=== PATIENT | female | born 1950 | race Caucasian/White ===

== ENCOUNTER 2016-05-01 06:51 | Day surgery (SDC) | payer MEDICARE, OTHER ==
[~2016-05-01] VITALS: Ht 172.7 cm; Wt 98.6 kg
[2016-05-01] VITALS (10 sets, daily range): BP systolic 132–173; BP diastolic 58–75; PULSE 55–65; RESP 10–18; O2SAT 94–100
[~2016-05-01 06:51] MED LIST: AMLO10TA3 PO; ATRV10T PO; CALC0.257 PO; CITA40TA PO; CeFAZolin 2 Gm/50 mL D5W IV Premix IV ONE; FURO40TA4 PO; GLIP5TAB26 PO; IMDUR; Lactated Ringer's 1,000 ML IV ONE; OMEP20CA11 PO; ZYL100 PO
[2016-05-01] MEDS ORDERED: Ondansetron 2 mg/mL 2 mL Inj ONE (06:52)
[2016-05-01] MEDS ORDERED: MetoCLOpramide 5 mg/mL 2 mL Inj ONE (06:52)
[2016-05-01] MEDS ORDERED: fentaNYL-PF 50 mCg/mL 2 mL Inj ONE (06:52)
[2016-05-01] MEDS ORDERED: Propofol 10,000 mCg/mL 20 mL Inj ONE (06:52)
[2016-05-01] MEDS ORDERED: Famotidine 20 mg/50 mL NS Premix IV ONE (09:42)
[2016-05-01] MEDS ORDERED: Bupivacaine-MPF 0.5% W/EPI 30 mL Inj INFILTRATE ONE (09:51)
[2016-05-01] MEDS ORDERED: Lactated Ringer's 500 ML IV PRN ×2 (10:12→10:58)
[2016-05-01] MEDS ORDERED: Lactated Ringer's 1,000 ML IV SCH ×2 (10:12→10:58)
--- NOTE | 2016-05-01 10:12 | PCM.HPANE ---
Patient Data Surgeon Admitting Provider: Attending Provider:Carlos Shahid MD Primary Care Physician:Mitchell Other Provider:Yong Rodriguez Anesthesia Reason for Visit Left Axilla Cyst Ht/WT & BMI Height (Feet): 5 Height (Inches): 8 Weight (Kilograms): 98.6 Body Mass Index 32.00 Allergies Uncoded Allergies: SODIUM PENTATHOL (Allergy, Unknown, 11/25/13) Past Anesthesia History Anesthesia History: Denies:: Abnormal Airway, Anesthesia Reactions, Difficult Intubation, Fam Anesthesia Reaction, Fam Malignant Hypertherm, Malignant Hyperthermia Diabetes History Hx Diabetes?: Yes Type of Diabetes: Type II Glycemic Control: Oral Medication Current Bedside Blood Glucose: 109 MRSA MRSA: No Medications Hypertension Medication: Yes Home Meds Incl Beta Gunner: Yes Reported Medications [imdur ER] No Conflict Check30 Mg DAILY 04/28/16 Glipizide ER 5 Mg Tab.er.245 Mg PO QPM 04/28/16 Glipizide ER 5 Mg Tab.er.2410 Mg PO QAM 04/28/16 Furosemide 40 Mg Wurcgr65 Mg PO DAILY 04/28/16 Citalopram Hydrobromide (Celexa)40 Mg Pjaksa63 Mg PO DAILY Ref 0 04/28/16 Calcitriol (Rocaltrol)0.25 Mcg Capsule0.5 Mcg PO Mon, Wed, Sun04/28/16 Atorvastatin (Lipitor)10 Mg Tab10 Mg PO DAILY Ref 0 04/28/16 Amlodipine 10 Mg Jymnfa23 Mg PO DAILY Ref 0 04/28/16 Allopurinol 100 Mg Vqcsvg204 Mg PO DAILY Ref 0 04/28/16 Discontinued Reported Medications Omeprazole 20 Mg Capsule.dr20 Mg PO DAILY Ref 0 04/28/16 [Calcitriol] No Conflict Check Po 3X/Weekly 07/16/14 [Emergen C] No Conflict Check Po Prn POWEDER FORM 01/15/14 Ferrous Sulfate 325 Mg Mrctsp453 Mg PO BID Ref 0 01/15/14 Lisinopril 20 Mg Wsnakv06 Mg PO DAILY Ref 0 01/15/14 Omeprazole-Expunged Drug, Do Not Renew! 20 Mg Capsule.dr20 Mg PO DAILY Ref 0 05/08/13 glipiZIDE-Expunged Drug, Do Not Renew! 5 Mg Tablet5 Mg PO PM For Diabetes 05/08/13 glipiZIDE-Expunged Drug, Do Not Renew! 5 Mg Kmmcko81 Mg PO AM For Diabetes 05/08/13 Allopurinol-Expunged Drug, Do Not Renew! 100 Mg Teryhh369 Mg PO DAILY 05/08/13 Atorvastatin-Expunged Drug, Do Not Renew! 20 Mg Gtydwn39 Mg PO DAILY Ref 0 05/08/13 Carvedilol-Expunged Drug, Do Not Renew! 6.25 Mg Gktalt93.5 Mg PO DAILY Ref 0 For OUTPATIENT can convert to long acting Coreg CR 20 mg Daily 05/08/13 AmLODIPine-Expunged Drug, Do Not Renew! 5 Mg Tablet5 Mg PO DAILY 05/08/13 Citalopram-Expunged Drug, Do Not Renew! 20 Mg Poopix74 Mg PO AM Ref 0 05/08/13 [occuvite/lutein] No Conflict Check 05/08/13 Ubidecarenone (Coq10)50 Mg Tab.iojr973 Mg PO DAILY 05/08/13 History HEENT History: Denies:: Abnormal Airway Difficult Intubation Dysphagia Hearing Problem Denture Type: Full- Upper Full- Lower Hx of Heart Problems?: No Cardiovascular History: Positive for:: Hypertension Denies:: AICD Atrial Fibrillation Chest Pain Pacemaker Valvular Heart Disease Hx of Respiratory Problem?: No Respiratory History: Denies:: Asthma COPD Cough Hemoptysis Oxygen Administration Pneumonia Tuberculosis Use of C-PAP Machine Hx Neurologic Problems?: No Neurological History: Denies:: CVA Dementia Multiple Sclerosis Parkinson's Disease Hx of GI Problems?: Yes Gastrointestinal History: Positive for:: Gastroesphageal Reflux Denies:: Cirrhosis Diverticulitis Gall Bladder Disease Hiatal Hernia Rectal Bleeding Hx of Problems?: Yes Genitourinary History: Denies:: Kidney Stones Other Pertinent History: CKD stage 4, from hypertensive nephrosclerosis Female Hx: Denies:: Currently Problems with Breasts? Skin History: Positive for:: History Skin Disorders? (left axillary cyst current admission problem) Hx Musculoskeletal Problems?: Yes Musculoskeletal History: Denies:: Joint Replacement Hx of Psycho/Social Problems?: Yes Psycho Social History: Positive for:: Hx Depression Denies:: Anxiety Hx Surgeries?: Yes (exc cyst buttock, thyroid biopsy, ) Hx Any Other Health Problems?: Yes Other History: Positive for:: Thyroid Disease (hyper, goiter) Hx Diabetes: YesBedside Blood Glucose: 109 Hx Alcohol Use: Yes (once in a while)Hx Substance Use: No Smoking Status: Former Smoker Have You Smoked inLast 12 mo: No Stop/Bang S-Snoring: Do You Snore Loudly: No T-Tired: feel tired, fatigued: No O-Obsered: Observed not breath: No P-Blood Pressure: treated: Yes B- Body Mass Index > 35 kg/m2: No A- Age over 50: Yes N- Neck Large Circumference: No G- Gender Male: No NAV Total Score: 2 Risk Assessment Category Category 1A: Patient has history of documented sleep apnea, and HAS NOT received any narcotic, sedative or anesthesia administration during this stay. Category 1B: Patient has history of documented sleep apnea, and HAS received any narcotic , sedative or anesthesia administration during this stay Category 2: Patient has SUSPECTED Obstructive Sleep Apnea, and HAS received any narcotic , sedative or anesthesia administration during this stay. Category 3: Patient has SUSPECTED Obstructive Sleep Apnea and HAS NOT received narcotic, sedative or anesthesia administration during this stay. Category 4: Outpatient in Procedural Areas with known sleep apnea or who screen positive for High Risk via the STOP/BANG questionnaire. Exam Exam Vital Signs Vital Signs Date Time Temp Pulse Resp B/P Pulse Ox O2 Delivery O2 Flow Rate FiO2 05/01/16 07:46 36 58 16 161/72 95 Room Air General Appearance: Alert, Oriented X3, Cooperative, No Acute Distress HEENT/AIRWAY: MP 2 Lungs: Clear to Auscultation, Normal Air Movement Heart: Exam Unremarkable, Regular Rate/Rhythm, No Murmurs/Rubs/Gallops Meds/Labs/Diagnostics Admission Meds Current Medications Lactated Ringer's (Lr) 1,000 ml @ 120 mls/hr Q8H20M ONCE IV Last administered on 05/01/16t 07:01; Start 05/01/16 at 05:00; Stop 05/01/16 at 13:19 Bedside Blood Glucose: 109 Plan Impression Patient chart reviewed, patient interviewed and anesthestic plan with risks, benefits, and alternatives discussed, and informed consent obtained. NPO Status: 04/30/16 ASA Physical Status: ASA2 Mod Systemic Disease Anesthetic Plan: GA Bene/Risks/Altern/Consents: Yes HP Complete Prior to Induction: Yes Malvin Mixon MD May 01, 2016 07:53
[2016-05-01] MEDS ORDERED: Ondansetron 2 mg/mL 2 mL Inj IVPUSH PRN (10:15)
[2016-05-01] MEDS ORDERED: Labetalol 5 mg/mL 4 mL Inj IV PRN (10:15)
[2016-05-01] MEDS ORDERED: Atropine 0.4 mg/mL Inj IVPUSH PRN (10:15)
[2016-05-01] MEDS ORDERED: fentaNYL-PF 50 mCg/mL 2 mL Inj IVPUSH PRN (10:15)
[2016-05-01] MEDS ORDERED: hydrALAZINE 20 mg/mL Inj IVPUSH PRN (10:15)
[2016-05-01] MEDS ORDERED: EPHEDrine Sulfate 50 mg/mL Inj IVPUSH PRN (10:15)
[2016-05-01] MEDS ORDERED: MetoCLOpramide 5 mg/mL 2 mL Inj IVPUSH PRN (10:15)
[2016-05-01] MEDS ORDERED: Phenylephrine 10,000 mCg/mL Inj IVPUSH PRN (10:15)
[2016-05-01] MEDS ORDERED: HYDROcodone-APAP 5-325 mg Tablet PO PRN (10:35)
[2016-05-01] MEDS: HYDROmorphone 1 mg/mL Inj IVPUSH PRN ×2 (10:50→11:04)
--- NOTE | 2016-05-01 11:25 | OP ---
[address] [address] OPERATIVE REPORT PATIENT: FLAKITO NEWBY : 1950 MR#: [id number] ADMIT: 05/01/2016 JOB ID: [id number] DATE OF SURGERY: 05/01/2016 SURGEON: Carlos Shahid MD INVESTIGATIONS DIRECTOR: Princess Tomlinson PA-C ANESTHESIA: General. PREOPERATIVE DIAGNOSIS(ES): Left axillary infected sebaceous cyst. POSTOPERATIVE DIAGNOSIS(ES): Left axillary infected sebaceous cyst. PRINCIPAL PROCEDURE: Excision of left axillary infected sebaceous cyst. INDICATION FOR PROCEDURE: The patient is a 65-year-old female with a chronic left axillary infected sebaceous cyst. PRINCIPAL FINDING: Successful excision. PREOPERATIVE DIAGNOSIS(ES): The patient was brought to the operating table and was provided with general anesthesia. The patient was given IV antibiotics and SCDs. A time-out was performed. The patient's left axillary was then exposed and prepped and draped in the usual sterile fashion. The proposed incision was marked and then injected with local anesthesia. Elliptical incisions of the skin around the cyst opening was carried out and a circumferential dissection around the cyst was made and the cyst as well as the ellipse of skin was then removed in its entirety. The specimen was sent. Palpation within the wound did not show any other residual pathology. Hemostasis was verified. Irrigation was performed. Next, the dermis layer was then reapproximated using absorbable sutures, and the skin was closed using a running absorbable suture. A sterile dressing was then placed over the wound. By the end of the procedure, needle counts and sponge counts were correct. The patient was then extubated and taken to the recovery room in stable satisfactory condition.
--- NOTE | 2016-05-01 15:33 | PCM.ANEP2 ---
Post Anesthesia Evaluation ASA/CMS Post Anesthesia VS in Patient's Normal Range?: Yes Resp Stable; Airway Patent?: Yes CV Function & Hydration Stable: Yes Mental Status Recovered?: Yes Pain control Satisfactory?: Yes N/V Control Satisfactory?: Yes Malvin Mixon MD May 01, 2016 15:33
--- NOTE | 2016-05-01 15:33 | PCM.ANEP1 ---
Post Anesthesia Phase 1 PACU Phase 1 Assessment Vital Signs Vital Signs Date Time Temp Pulse Resp B/P Pulse Ox O2 Delivery O2 Flow Rate FiO2 05/01/16 11:20 56 16 132/75 94 Room Air 05/01/16 11:10 58 14 147/74 94 Room Air 05/01/16 11:05 55 14 148/65 100 Room Air 05/01/16 11:00 36.5 57 12 155/62 100 Room Air 05/01/16 10:55 58 18 158/58 95 Room Air 05/01/16 10:50 56 161/62 05/01/16 10:45 56 10 157/62 99 Room Air 05/01/16 10:40 62 14 161/67 100 Simple Mask 8 05/01/16 10:35 36.4 65 14 173/64 100 Simple Mask 8 05/01/16 07:46 36 58 16 161/72 95 Room Air Anesthetic Administered: GA Level of Alertness: Awake, talking ONEIL's with Equal Strength: Yes Pain: No Nausea or Vomiting: No Oxygen Delivery: Room Air Lungs: Clear to Auscultation, Normal Air Movement Dermatome Level: Full Sensation Malvin Mixon MD May 01, 2016 15:33
--- NOTE | 2016-05-05 10:35 | PATH ---
SURGICAL PATHOLOGY Attending Physician:Carlos Shahid M.D. 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 Negative for malignancy. ICD10: D23.9 NOTE: The entire specimen is submitted for microscopic evaluation without significant cytologic atypia or malignancy. The case has also been reviewed by Dr. Quintero, dermatopathologist, and Dr. Corrigan, who agree with the interpretation. SAMANTHA, 05/05/2016 GROSS DESCRIPTION: The specimen is received in one formalin filled container labeled with the patient's name, sublabeled "left axillary cyst" and consists of a light yellow-guardado portion of soft tissue which measures 3.5 x 2.5 x 2.0 CM. The specimen is inked, and entirely submitted in 5 cassettes (1A-1E). 05/01/2016 DAC MICRO DESCRIPTION: Microscopic examination reveals a papillary cystic structure within the dermis, fairly well circumscribed, composed of complex papillae with tufting, lined by an inner layer of cuboidal epithelium with apocrine morphology and an outer layer of myoepithelial cells. The fibrovascular cores exhibit dense hyalinization and in other areas show aggregates of histiocytes and chronic inflammatory cells, including lymphocytes and plasma cells. The lining cells show minimal cytologic atypia and occasional mitotic figures (non-atypical). The lesion extends to cauterized edges of the tissue; therefore, complete excision of any residual lesion is recommended for further evaluation and to prevent recurrence. The overlying epidermis shows no apparent connection with the intradermally located syringocystadenoma papilliferum and appears acanthotic and focally papillomatotic. In addition, within the subcutaneous adipose tissue, there are benign lymphoid aggregates, with reactive germinal centers. Immunostains were performed to evaluate for the possibility of an invasive component and results are as follows: p63 and smooth muscle actin show preserved and intact myoepithelial cell layer, supporting intracystic papillary proliferation of the lesional cells-without invasion. ICD-9 CODES: CPT CODES: 1: 04312, 57067, 98339 Electronically Signed Out Jose Thornton M.D.,[facility] [address], [place] [address] Technical component performed at [facility], [address], [place], [address]
[2016-07-05] MEDS ORDERED: OMEP20CA11 PO (10:44)
[2016-07-05] MEDS ORDERED: HYDR-4003 PO (10:44)
[2016-07-13] MEDS ORDERED: IRON SUPPLEMENT PO (11:46)
== END 2016-05-01 23:59 | disposition home or self-care (01) ==
LOC: SAS 06:51
PROVIDERS: ATTEND Surgery
DX: D23.5 Other benign neoplasm of skin of trunk (principal); E11.22 Type 2 diabetes mellitus with diabetic chronic kidney disease; N18.4 Chronic kidney disease, stage 4 (severe); I13.10 Hypertensive heart and chronic kidney disease without heart failure, with stage 1 through stage 4 chronic kidney disease, or unspecified chronic kidney disease; E04.9 Nontoxic goiter, unspecified; E78.5 Hyperlipidemia, unspecified; D64.9 Anemia, unspecified; F41.8 Other specified anxiety disorders; K21.9 Gastro-esophageal reflux disease without esophagitis; G47.00 Insomnia, unspecified; M81.0 Age-related osteoporosis without current pathological fracture; M19.90 Unspecified osteoarthritis, unspecified site; Z87.891 Personal history of nicotine dependence
CPT/HCPCS: 10061; J0690; J1170; J2405; J2765; J3490; J7120

== ENCOUNTER 2016-07-10 11:31 | Day surgery (SDC) | payer MEDICARE, OTHER ==
[2016-07-10] VITALS (8 sets, daily range): BP systolic 123–194; BP diastolic 61–83; PULSE 61–74; RESP 13–18; O2SAT 92–99
[~2016-07-10] VITALS: Ht 172.7 cm; Wt 98.8 kg
[~2016-07-10 11:31] MED LIST changes: +0.9% Sodium Chloride 1,000 ML IV SCH; +Acetaminophen IV 1,000 MG in IV Premix 1 EACH IV ONE; -CeFAZolin 2 Gm/50 mL D5W IV Premix IV ONE; +CeFAZolin Inj 2 GM in IV Premix 1 EACH IV ONE; +HYDR-4003 PO
[2016-07-10] MEDS ORDERED: Propofol 10,000 mCg/mL 20 mL Inj ONE (11:32)
[2016-07-10] MEDS ORDERED: Atropine 0.4 mg/mL Inj ONE (11:32)
[2016-07-10] MEDS ORDERED: fentaNYL-PF 50 mCg/mL 2 mL Inj ONE (11:32)
[2016-07-10] MEDS ORDERED: MetoCLOpramide 5 mg/mL 2 mL Inj ONE (11:32)
[2016-07-10] MEDS ORDERED: Ondansetron 2 mg/mL 2 mL Inj ONE (11:32)
[2016-07-10] MEDS ORDERED: CeFAZolin Inj 2 gm / 50mL D5W IV ONE (12:00)
--- NOTE | 2016-07-10 13:59 | DRSVH ---
PROCEDURE: X-RAY LEFT HAND, MINIMUM THREE VIEWS ([id number]) INDICATIONS: PRE OP TECHNIQUE: 3 views of the hand(s) acquired. COMPARISON: None. FINDINGS: Bones: No fractures or dislocations. Carpal bones are normally aligned. No suspicious bony lesions . Mild triscaphe, first CMC and diffuse interphalangeal joint narrowing where there it is periarticu lar osteophyte formation. Soft tissues: No suspicious soft tissue calcifications. Vascular calcifications indicate atheroscle rosis. IMPRESSION: Multilevel osteoarthritis. Dictated by: Zack MCMANUS Interpreted: Dorinda Huynh MD on 07/10/2016 at 13:58 Transcribed by: JORGE ABLERTO on 07/10/2016 at 13:59 Approved by: Dorinda Huynh M.D. on 07/11/2016 at 10:39
[2016-07-10] MEDS ORDERED: Gentamicin 40 mg/mL 2 mL Inj IRRIGATION ONE (14:29)
[2016-07-10] MEDS ORDERED: Bupivacaine-MPF 0.5% 30 mL Inj INFILTRATE ONE (14:30)
[2016-07-10] MEDS ORDERED: Lactated Ringer's 1,000 ML IV SCH (15:07)
[2016-07-10] MEDS ORDERED: Lactated Ringer's 500 ML IV PRN (15:07)
--- NOTE | 2016-07-10 15:07 | PCM.HPANE ---
Patient Data Date of Service: Jul 10, 2016 (9458) Surgeon Admitting Provider: Attending Provider:Albino Tobar MD Primary Care Physician:Jyoti Umaña Other Provider:Yong Rodriguez Anesthesia Reason for Visit Left Index Finger Digital Nerve Laceration Ht/WT & BMI Height (Feet): 5 Height (Inches): 8.00 Weight (Kilograms): 98.8 Body Mass Index 33.00 Allergies Uncoded Allergies: SODIUM PENTATHOL (Adverse Reaction, Unknown, 07/06/16) Past Anesthesia History Anesthesia History: Denies:: Abnormal Airway, Anesthesia Reactions, Difficult Intubation, Fam Anesthesia Reaction, Fam Malignant Hypertherm, Malignant Hyperthermia Diabetes History Hx Diabetes?: Yes Type of Diabetes: Type II Glycemic Control: Oral Medication Current Bedside Blood Glucose: 145 MRSA MRSA: No Medications Hypertension Medication: Yes Home Meds Incl Beta Gunner: No Reported Medications Hydrocodone-Acetaminophen 5-325 mg 1 Each Tablet1 Tablet PO Q6H PRN For Pain Ref 0 07/05/16 Glipizide ER 5 Mg Tab.er.245 Mg PO QPM 04/28/16 Glipizide ER 5 Mg Tab.er.2410 Mg PO QAM 04/28/16 Furosemide 40 Mg Ksbpfz25 Mg PO DAILY 04/28/16 Citalopram Hydrobromide (Celexa)40 Mg Idjjzk63 Mg PO DAILY Ref 0 04/28/16 Calcitriol (Rocaltrol)0.25 Mcg Capsule0.5 Mcg PO Mon, Wed, Sun04/28/16 Atorvastatin (Lipitor)10 Mg Tab10 Mg PO DAILY Ref 0 04/28/16 Amlodipine 10 Mg Bbfmzq67 Mg PO DAILY Ref 0 04/28/16 Allopurinol 100 Mg Qyxvei728 Mg PO DAILY Ref 0 04/28/16 Discontinued Reported Medications Omeprazole 20 Mg Capsule.dr20 Mg PO DAILY Ref 0 07/05/16 [imdur ER] No Conflict Check30 Mg DAILY 04/28/16 History History of ENT Problems?: Yes HEENT History: Denies:: Abnormal Airway Difficult Intubation Dysphagia Glaucoma (S/P RETINAL SURGERY (?LASER)) Hearing Problem Denture Type: Full- Upper Partial- Lower Hx of Heart Problems?: Yes Cardiovascular History: Positive for:: Edema (lymphedema l upper arm post ax cyst exc 04/2016) Hypertension Denies:: AICD Atrial Fibrillation Chest Pain Heart Murmur Irregular Heartbeat Pacemaker Valvular Heart Disease Other Cardiac History: past hx of chronic anemia- followed by Dr Mccrary Hx of Respiratory Problem?: No Respiratory History: Denies:: Asthma COPD Cough Hemoptysis Oxygen Administration Pneumonia Tuberculosis Use of C-PAP Machine Hx Neurologic Problems?: Yes Neurological History: Positive for:: Headaches Denies:: CVA Dementia Dizziness Multiple Sclerosis Parkinson's Disease Hx of GI Problems?: Yes Gastrointestinal History: Positive for:: Gastroesphageal Reflux Hiatal Hernia Denies:: Cirrhosis Diverticulitis Rectal Bleeding Hx of Problems?: Yes Genitourinary History: Denies:: HX of Hemodialysis (CKD stage 4, fropm hypertensive nephrosclerosis) Kidney Stones Other Pertinent History: Female Hx: Denies:: Currently Problems with Breasts? Skin History: Positive for:: History Skin Disorders? (past hx left ax cyst exc , buttock cyst exc) Denies:: Pressure Ulcers Hx Musculoskeletal Problems?: Yes Musculoskeletal History: Positive for:: Musculoskeletal Trauma (left hand puncture wound, digital nerve laceration current admission) Osteoarthritis (OSTEOPOROSIS) Denies:: Joint Replacement Hx of Psycho/Social Problems?: Yes Psycho Social History: Positive for:: Anxiety Hx Depression Hx Surgeries?: Yes (ax cyst exc, exc cyst buttock, thyroid bx) Hx Any Other Health Problems?: Yes Other History: Positive for:: Thyroid Disease (hyper, goiter) Denies:: Cancer Endocrine Disease Hospitalization History Blood Transfusions: Denies:: Blood Transfusions Hx Diabetes: YesBedside Blood Glucose: 145 Hx Alcohol Use: YesAlcoholic Drinks Per Day: once in a whileHx Substance Use: No Smoking Status: Former Smoker Have You Smoked inLast 12 mo: NoApprox How Many Cigarettes/day: 5-6YR HX Stop/Bang S-Snoring: Do You Snore Loudly: No T-Tired: feel tired, fatigued: No O-Obsered: Observed not breath: No P-Blood Pressure: treated: Yes B- Body Mass Index > 35 kg/m2: No A- Age over 50: Yes N- Neck Large Circumference: No G- Gender Male: No NAV Total Score: 2 Risk Assessment Category Category 1A: Patient has history of documented sleep apnea, and HAS NOT received any narcotic, sedative or anesthesia administration during this stay. Category 1B: Patient has history of documented sleep apnea, and HAS received any narcotic , sedative or anesthesia administration during this stay Category 2: Patient has SUSPECTED Obstructive Sleep Apnea, and HAS received any narcotic , sedative or anesthesia administration during this stay. Category 3: Patient has SUSPECTED Obstructive Sleep Apnea and HAS NOT received narcotic, sedative or anesthesia administration during this stay. Category 4: Outpatient in Procedural Areas with known sleep apnea or who screen positive for High Risk via the STOP/BANG questionnaire. Exam Exam Vital Signs Vital Signs Date Time Temp Pulse Resp B/P Pulse Ox O2 Delivery O2 Flow Rate FiO2 07/10/16 13:15 36.6 61 18 173/73 98 Room Air General Appearance: Alert, Oriented X3, Cooperative, No Acute Distress HEENT/AIRWAY: MP 2 Lungs: Clear to Auscultation Heart: Exam Unremarkable Meds/Labs/Diagnostics Admission Meds Current Medications Lactated Ringer's 1,000 ml @ 120 mls/hr Q8H20M ONCE IV Last administered on 11:45; Start 07/10/16 at 05:00; Stop 07/10/16 at 13:19; Status DC Cefazolin Sodium/ Dextrose/Premix (Ancef Inj / D5W 50mL/IV Premix) 50 ml @ 100 mls/hr ONCE ONCE IV Last administered on 07/10/16 14:15; Start 07/10/16 at 06 :00; Stop 07/10/16 at 06:29; Status DC Acetaminophen (Tylenol IV) 1,000 mg STK-MED ONCE IV Last administered on 12:52; Start 07/10/16 at 12:00; Stop 07/10/16 at 12:01; Status DC Gentamicin Sulfate (Gentamicin Inj) 240 mg STK-MED ONCE IRRIGATION Last administered on 07/10/16 14:29; Start 07/10/16 at 14:29; Stop 07/10/16 at 14:34 ; Status DC Bupivacaine HCl (Sensorcaine-MPF 0.5% Inj) 30 ml STK-MED ONCE INFILTRATE Last administered on 07/10/16 14:30; Start 07/10/16 at 14:30; Stop 07/10/16 at 14:34 ; Status DC Bedside Blood Glucose: 145 Plan Impression Patient chart reviewed, patient interviewed and anesthestic plan with risks, benefits, and alternatives discussed, and informed consent obtained. NPO Status: 07/09/16 AT 2100 ASA Physical Status: ASA2 Mod Systemic Disease Anesthetic Plan: GA Bene/Risks/Altern/Consents: Yes HP Complete Prior to Induction: Yes Arturo River MD Jul 10, 2016 15:07
[2016-07-10] MEDS ORDERED: MetoCLOpramide 5 mg/mL 2 mL Inj IVPUSH PRN (15:10)
[2016-07-10] MEDS ORDERED: EPHEDrine Sulfate 50 mg/mL Inj IVPUSH PRN (15:10)
[2016-07-10] MEDS ORDERED: Dexamethasone 4 mg/mL Inj IVPUSH PRN (15:10)
[2016-07-10] MEDS ORDERED: HYDROmorphone 1 mg/mL Inj IVPUSH PRN (15:10)
[2016-07-10] MEDS ORDERED: Phenylephrine 10,000 mCg/mL Inj IVPUSH PRN (15:10)
[2016-07-10] MEDS ORDERED: Ondansetron 2 mg/mL 2 mL Inj IVPUSH PRN (15:10)
[2016-07-10] MEDS ORDERED: fentaNYL-PF 50 mCg/mL 2 mL Inj IVPUSH PRN (15:10)
[2016-07-10] MEDS ORDERED: oxyCODONE-Acetamin 5-325 mg Tablet PO PRN (15:45)
--- NOTE | 2016-07-10 15:55 | PCM.ANEP1 ---
Post Anesthesia Phase 1 PACU Phase 1 Assessment Date of Service: Jul 10, 2016 (1320) Vital Signs Vital Signs Date Time Temp Pulse Resp B/P Pulse Ox O2 Delivery O2 Flow Rate FiO2 07/10/16 13:15 36.6 61 18 173/73 98 Room Air Anesthetic Administered: GA Level of Alertness: Sleepy, easy to arouse ONEIL's with Equal Strength: Yes Pain: No Nausea or Vomiting: No Oxygen Delivery: Nasal Cannula Lungs: Clear to Auscultation Dermatome Level: Full Sensation Arturo River MD Jul 10, 2016 15:55
--- NOTE | 2016-07-10 15:58 | PCM.ANEP2 ---
Post Anesthesia Evaluation ASA/CMS Post Anesthesia VS in Patient's Normal Range?: Yes Resp Stable; Airway Patent?: Yes CV Function & Hydration Stable: Yes Mental Status Recovered?: Yes Pain control Satisfactory?: Yes N/V Control Satisfactory?: Yes Arturo River MD Jul 10, 2016 15:58
[2016-07-13] MEDS ORDERED: IRON SUPPLEMENT PO (11:46)
--- NOTE | 2016-07-25 08:48 | OP ---
[address] [address] OPERATIVE REPORT PATIENT: FLAKITO NEWBY : 1950 MR#: [id number] ADMIT: 07/10/2016 JOB ID: [id number] DATE OF SURGERY: 07/10/2016 PREOPERATIVE DIAGNOSIS(ES): Left index finger radial digital nerve laceration. ICD-10 Code S64.40XA. POSTOPERATIVE DIAGNOSIS(ES): Left index finger radial digital nerve laceration. ICD-10 Code S64.40XA. PROCEDURE: 1. Exploration of left hand puncture penetrating wound CPT .code 24832 2. Repair of radial digital nerve. 3. CPT code 57727. SURGEON: Albino Tobar MD. ANESTHESIA: General. ESTIMATED BLOOD LOSS: Less than the 2 mL. DRAINS: None. COMPLICATIONS: None. SPONGE AND NEEDLE COUNT: Correct. INDICATIONS: This is a 66-year-old female who sustained a glass puncture wound to the area over the distal index metacarpal and was noted to have decreased sensibility over the radial digital nerve. She also had some hypersensitivity in that direct area where she had the puncture wound. Puncture wound was from a piece of glass. There was no foreign body noted on x-ray. Also of note she has a healing left radial head fracture and her long arm splint was removed today in the OR. I was able to fully extend the patient's elbow. PROCEDURE IN DETAIL: Under adequate general anesthetic, a well-padded tourniquet was applied to the left upper extremity. Left arm was prepped and draped in sterile fashion after appropriate time-out was called. The arm was elevated, exsanguinated, tourniquet inflated to 250 mmHg. A Kathryn zigzag incision was fashioned from the base of the index finger proximally, centering it over the area of the puncture wound. The puncture wound area was explored. It was found that she had a partial laceration to the radial digital nerve involving basically the ulnar portion of the radial digital nerve. The flexor tendon was noted to be intact and the ulnar digital nerve to the index finger was also noted to be intact, as well as the ulnar vascular bundle. The wound was thoroughly irrigated with antibiotic solution. After the wound was irrigated, clean gloves, clean instruments, and clean drapes were utilized. The ulnar digital nerve was explored to rest assured that the digital nerve was intact down into the base of the proximal portion of the index finger. The partial laceration to the radial digital nerve of the index finger was at the level of the mid palmar crease. The nerve was repaired with a 8-0 nylon utilizing loupe magnification. This only required a few sutures since it was only the ulnar edge of the radial digital nerve. The wound was then infiltrated with 0.5% plain Marcaine. Please note, there was no foreign body noted. The tourniquet was released. Minimal hemostasis required. Skin approximated with horizontal mattress sutures of 4-0 nylon. Xeroform dry sterile dressings were applied. The patient was placed in a bulky radial gutter splint incorporating the index and long fingers. The patient was taken back to recovery room in stable condition. Sponge and needle count correct. PLAN: The patient will be discharged to home on oral Percocet and Keflex. She should be seen back in the office in two weeks. At that time, the sutures can be removed. She should be able to also begin range of motion to the finger. She will need to be careful not to do any heavy gripping or lifting. ADDITIONAL INFORMATION: Patient also had a left radial head fracture that did not require any surgical intervention and her long arm splint was removed today. Intraoperatively, I was able to passively extend the elbow to neutral. She will need elbow xrays in the office for follow-up CC: JOHN- Orthopedics CC: Cody Castro
== END 2016-07-10 23:59 | disposition home or self-care (01) ==
LOC: SAS 11:31
PROVIDERS: ATTEND Orthopaedic Surgery
DX: S64.491A Injury of digital nerve of left index finger, initial encounter (principal); W25.XXXA Contact with sharp glass, initial encounter; Y93.D9 Activity, other involving arts and handcrafts; Y92.9 Unspecified place or not applicable; I12.9 Hypertensive chronic kidney disease with stage 1 through stage 4 chronic kidney disease, or unspecified chronic kidney disease; E11.9 Type 2 diabetes mellitus without complications; N18.9 Chronic kidney disease, unspecified; D63.1 Anemia in chronic kidney disease; E78.5 Hyperlipidemia, unspecified; E04.1 Nontoxic single thyroid nodule; G47.00 Insomnia, unspecified; F32.9 Major depressive disorder, single episode, unspecified; F41.9 Anxiety disorder, unspecified; K21.9 Gastro-esophageal reflux disease without esophagitis; M81.0 Age-related osteoporosis without current pathological fracture; M19.90 Unspecified osteoarthritis, unspecified site; D47.2 Monoclonal gammopathy; Z87.891 Personal history of nicotine dependence; Z79.84 Long term (current) use of oral hypoglycemic drugs
CPT/HCPCS: 64831; 73130; J0131; J0461; J0690; J1580; J2405; J2765; J3010; J7120